=== PATIENT | male | born 1960 | race Two or more races ===

== ENCOUNTER → 2016-09-22 | Outpatient (CLI) | payer OTHER ==
[~2016-09-22] MED LIST: NO MEDICATIONS
--- NOTE | ~2016-09-22 | CR212 ---
[facility] A Service of [facility] & [facility] RADIOLOGY TEXT RESULTS PATIENT: VERONICA FINLEY LOCATION: [facility] : 60 UNIT #: [id number] AGE: [address]: Vikram Coleman MD SEX: M ORDER DR: [id number] [facility]. [place], [place] [address] [id number] O MR#: [id number] Acc #: [id number] NAME: VERONICA FINLEY : 1960 SEX: M STUDY DATE/TIME: 09/22/2016 11:13 UNIT: [facility] ROOM: STUDY DESCRIPTION: CR Ribs Unilateral 2 View Lt Attending Physician: Vikram Coleman M.D. Referring Physician: Vikram Coleman M.D. Ordering Physician: Vikram Coleman M.D. Primary Care Physician: Vikram Coleman M.D. MEDICAL IMAGING REPORT This report is preliminary unless electronic signature is present EXAM Left rib series INDICATIONS Left rib pain for 1 year. COMPARISON STUDIES No comparisons. FINDINGS There is no evidence for displaced rib fracture. IMPRESSION No evidence for displaced rib fracture. Dictated by... Asif Suarez M.D. THIS IS AN ELECTRONICALLY VERIFIED REPORT Asif Suarez M.D. at 09/23/2016 5:12 PM ARS/pcl TD: 09/22/2016 21:18 JOB #: [id number] MEDICAL IMAGING REPORT Page 1 of 1 COPY
--- NOTE | ~2016-09-22 | CR63 ---
[facility] A Service of [facility] & [facility] RADIOLOGY TEXT RESULTS PATIENT: VERONICA FINLEY LOCATION: [facility] : 60 UNIT #: [id number] AGE: [address]: Vikram Coleman MD SEX: M ORDER DR: [id number] [facility]. [place], [place] [address] [id number] O MR#: [id number] Acc #: [id number] NAME: VERONICA FINLEY : 1960 SEX: M STUDY DATE/TIME: 09/22/2016 11:13 UNIT: [facility] ROOM: STUDY DESCRIPTION: CR Chest 2 View Attending Physician: Vikram Coleman M.D. Referring Physician: Vikram Coleman M.D. Ordering Physician: Vikram Coleman M.D. Primary Care Physician: Vikram Coleman M.D. MEDICAL IMAGING REPORT This report is preliminary unless electronic signature is present EXAM PA and lateral chest INDICATIONS Left mid to lateral rib pain and chest pain for 1 year. No comparisons. FINDINGS There is minimal bibasilar atelectasis or scar. Heart size normal. Visualized osseous structures unremarkable. IMPRESSION No active disease. Dictated by... Asif Suarez M.D. THIS IS AN ELECTRONICALLY VERIFIED REPORT Asif Suarez M.D. at 09/23/2016 5:12 PM ARS/abdullahi TD: 09/22/2016 21:17 JOB #: [id number] MEDICAL IMAGING REPORT Page 1 of 1 COPY
== END | disposition home or self-care (01) ==
LOC: CRAD 10:46
DX: R07.81 Pleurodynia (principal)
CPT/HCPCS: 71020; 71100

== ENCOUNTER → 2016-10-06 | Outpatient (CLI) | payer OTHER ==
--- NOTE | ~2016-10-06 | US80 ---
[facility] A Service of [facility] RADIOLOGY TEXT RESULTS PATIENT: VERONICA FINLEY LOCATION: [facility] : 60 UNIT #: [id number] AGE: [address]: RUTH DAI APRN SEX: M ORDER DR: [id number] [place], [place] [address] [id number] O MR#: [id number] Acc #: [id number] NAME: VERONICA FINLEY : 1960 SEX: M STUDY DATE/TIME: 10/06/2016 16:02 UNIT: [facility] ROOM: STUDY DESCRIPTION: US Kidney Unilateral Complete Attending Physician: Ruth Dai Referring Physician: Ruth Dai Ordering Physician: Kari Dai M.D. Primary Care Physician: Vikram Coleman M.D. MEDICAL IMAGING REPORT This report is preliminary unless electronic signature is present EXAM Left renal ultrasound INDICATIONS Left flank pain for the past year. PROCEDURE Kaur-scale, Doppler imaging left kidney and bladder. COMPARISON None FINDINGS Right kidney measures 13.9 cm. There is a 7.2 cm simple cyst in the [id number] left kidney similar to the prior. No hydronephrosis. Normal bladder. IMPRESSION Stable benign simple cyst in the left kidney compared to previous abdomen and pelvis CT. Dictated by... Arnol Altamirano M.D. THIS IS AN ELECTRONICALLY VERIFIED REPORT Arnol Altamirano M.D. at 10/07/2016 7:35 AM REID/rolando TD: 10/06/2016 23:03 JOB #: [id number] [facility] A Service of [facility] RADIOLOGY TEXT RESULTS PATIENT: VERONICA FINLEY LOCATION: [facility] : 60 UNIT #: [id number] AGE: [address]: RUTH DAI APRN SEX: M ORDER DR: MEDICAL IMAGING REPORT Page 1 of 1 COPY
== END | disposition home or self-care (01) ==
LOC: CGUS 15:32
DX: N23 Unspecified renal colic (principal); N28.1 Cyst of kidney, acquired; Z87.448 Personal history of other diseases of urinary system
CPT/HCPCS: 76770